=== PATIENT | female | born 2005 | race Caucasian/White ===

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

== ENCOUNTER 2024-01-28 10:10 | Outpatient (RCR) | payer MEDICAID, SELFPAY | END 2024-02-02 23:59 | disposition home or self-care (01) | LOC: SOT 10:10 | PROVIDERS: PCP Nurse Practitioner; Visit Provider Nurse Practitioner | DX: M25.541 Pain in joints of right hand (principal) | CPT/HCPCS: 97110; 97166 ==

== ENCOUNTER 2024-05-05 14:50 | Emergency (ER) | payer MEDICAID, SELFPAY ==
[2024-05-05] VITALS (9 sets, daily range): BP systolic 113–123; BP diastolic 64–85; PULSE 66–91; TEMP 36.7; O2SAT 98–100
[2024-05-05 17:00] LABS: Basophils % 0.4 %; Eosinophils # 0.2 10^3/uL (0.0-0.8); Eosinophils % 1.7 %; Hematocrit 41.9 % (36-47); Lymphocytes # 1.6 10^3/uL (1.5-6.5); Lymphocytes % 16.1 %; Mean Corpuscular Hemoglobin 26.7 pg (27-33); Mean Corpuscular Volume 83.5 fl (85-98); Mean Platelet Volume 9.3 fL (7.4-10.4); Monocytes # 0.7 10^3/uL (0.2-0.9); Monocytes % 7.3 %; Neutrophils # 7.43 10^3/uL (1.8-8.0); Neutrophils % 74.1 %; Nucleated Red Blood Cells % 0 %; Platelet Count 412 10^3/cmm (157-399); Red Blood Count 5.02 10^6/uL (3.85-5.65); Red Cell Distribution Width 13.9 % (12.1-15.1); White Blood Count 10.02 10^3/uL (4.5-13.0)
[2024-05-05 17:17] LABS: HCG Quantitative 7.04 mIU/mL
[2024-05-05 17:35] LABS: Slide Review Slide Review Perform
--- NOTE | 2024-05-05 18:32 | USR_ITS ---
PROCEDURE INFORMATION: Exam: US , Limited Exam date and time: 05/05/2024 6:45 PM Age: 18 years old Clinical indication: Lmp or gestational age (in weeks): Unknown; Antepartum complications; Bleeding; ; Patient HX: Patient stopped control pills September 2023. She has not had a menstrual cycle since then. Quant bhcg = 7.0. Patient denies any pain. ; Additional info: 9 weeks gestation low hcg, iufd versus ab LABS AND CLINICAL REPORTS: Choriogonadotropin in serum (Serum HCG): 7 mIU/mL Last menstrual period start date: Unknown TECHNIQUE: Imaging protocol: Real-time ultrasound of the maternal uterus with image documentation. Exam focused on the clinical indication. COMPARISON: No relevant prior studies available. FINDINGS: Gestation: No visualized intrauterine gestation. MATERNAL: Uterus: The uterus is anteverted and measures 8.2 cm x 4.7 cm x 3.9 cm. The endometrial thickness is 0.4 cm, which is unremarkable for patient age. Right ovary/adnexa: Right ovary measures 5.9 cm x 4.4 cm x 2.6 cm. Right ovarian volume is 35.9 mL. There is a 2.4 cm simple cyst within the right ovary. Left ovary/adnexa: Left ovary measures 3.3 cm x 3.4 cm x 1.7 cm. Left ovarian volume is 10 mL. Unremarkable sonographic appearance. US/US OB limited [id number] IMPRESSION: 1. No visualized intra or extra uterine gestation. If there is a history of positive test, this may be due to missed or early gestational age. Serial beta hCG and close sonographic follow-up is recommended. 2. Simple 2.4 cm right ovarian cyst. 3. Otherwise unremarkable pelvic ultrasound.
--- NOTE | 2024-05-05 18:34 | W.ED.PREGNAN ---
HPI - General: Chief complaint: Vaginal Bleeding Stated complaint: spotting 4 to 6wk preg Time Seen by Provider: 05/05/24 17:45 History of Present Illness: Patient was in the ER complaining of vaginal bleeding x 24 hours. She says she is 9 weeks per last period. [facility] to the [facility] approximately 2 weeks ago noted test and got set up with [facility]. Patient denies any pain at this time. Patient is G1, P0 Related Data Previous Rx's Medication Instructions Recorded naproxen 250 mg tablet 250 mg PO BID PRN pain #30 tabs 04/04/23 cetirizine 10 mg tablet 10 mg PO DAILY #30 tabs 10/01/23 fluticasone propionate 50 1 spray intranasal BID #15.8 mL 10/01/23 mcg/actuation nasal spray,suspension medroxyprogesterone 150 mg/mL 150 mg IM ONCE #1 mL 10/27/23 intramuscular suspension (Depo-Provera) cholecalciferol (vitamin D3) 1,250 1,250 mcg PO .weekly 6 weeks #6 11/02/23 mcg (50,000 unit) capsule caps docusate sodium 100 mg capsule 100 mg PO BID #60 caps 01/21/24 triamcinolone acetonide 0.5 % 1 applic topical BID 7 days #15 01/21/24 topical cream grams hydroxyzine HCl 10 mg tablet 5 mg (1/2 x 10 mg) PO TID PRN 01/24/24 anxiety #30 tabs paroxetine HCl 30 mg tablet 30 mg PO DAILY #30 tabs 01/24/24 Allergies Allergy/AdvReac Type Severity Reaction Status Date / Time No Known Allergies Allergy Verified 05/05/24 15:59 Review of Systems General: Reports: 10 or more systems reviewed and unremarkable except in HPI and below PFSH ED PFSH: Family History Other Asthma CAD (coronary artery disease) Cancer Diabetes Hypertension Migraines Stroke Social History Smoking and tobacco/nicotine status: never used tobacco/nicotine Second hand smoke exposure: Yes Alcohol intake: never Substance/Drug Use: never Adopted: No Highest education level completed: 8th Grade Female Reproductive History: Para: 0 Spontaneous abortions: No Physical Exam Const: COMMON NORMALS: no acute distress, average body habitus, patient oriented x3, no limitations, healthy appearing, alert and well nourished HENMT: COMMON NORMALS: normocephalic, atraumatic, hearing grossly normal bilaterally, external ears normal, Normal external nose present and moist oral mucous membranes HEAD & SCALP: normocephalic and atraumatic NOSE: Normal external nose present EXTERNAL EAR: Yes external ears normal Neck/C-Spine: COMMON NORMALS: no JVD Chest: COMMONS NORMALS: normal inspection of the chest and normal palpation of entire chest wall Resp: COMMON NORMALS: normal respiratory effort, No retractions, No use of accessory muscles and clear to auscultation bilaterally AUSCULTATION: clear to auscultation bilaterally Cardio: COMMON NORMALS: no JVD, regular rate, regular rhythm, S1 normal heart sound present, S2 normal heart sound present, No gallops present (Cardio), No clicks present (Cardio), No murmurs present (Cardio) and No rub (Cardio) RATE: regular rate RHYTHM: regular rhythm HEART SOUNDS: S1 normal heart sound present and S2 normal heart sound present GI: COMMON NORMALS: Normal to inspection, nondistended, normoactive bowel sounds present, Soft to palpation, non-tender, No hepatosplenomegaly present and no masses PALPATION: Yes Soft to palpation and Yes No hepatosplenomegaly present Neuro: COMMON NORMALS: patient oriented x3 SENSORIUM/ORIENTATION: Yes alert Course Vital Signs: Vital signs: Vital Signs Temperature 98.1 F 05/05/24 15:53 Pulse Rate 85 05/05/24 21:00 Blood Pressure 117/77 05/05/24 21:00 Pulse Oximetry 100 05/05/24 21:00 Oxygen Delivery Me thod Room Air 05/05/24 20:00 MDM - OB/Uterine Contractions Medical Decision Making Lab work showed a beta-hCG of 7, OB ultrasound showed no visible intra or extrauterine , these results was discussed with the patient and how she needs a follow-up in 48 hours for repeat beta-hCG quantitative. Patient be discharged. Medical Records I reviewed the patient's medical records. Lab Data I reviewed the patient's lab results. 05/05/24 16:50 Radiology Impressions Obstetrics Ultrasound 05/05/24 18:32 IMPRESSION: 1. No visualized intra or extra uterine gestation. If there is a history of positive test, this may be due to missed or early gestational age. Serial beta hCG and close sonographic follow-up is recommended. 2. Simple 2.4 cm right ovarian cyst. 3. Otherwise unremarkable pelvic ultrasound. Laboratory Results WBC 10.02 10^3/uL (4.5-13.0) 05/05/24 16:50 RBC 5.02 10^6/uL (3.85-5.65) 05/05/24 16:50 Hgb 13.40 g/dL (12.4-14.8) 05/05/24 16:50 Hct 41.9 % (36-47) 05/05/24 16:50 MCV 83.5 fl (85-98) L 05/05/24 16:50 MCH 26.7 pg (27-33) L 05/05/24 16:50 MCHC 32.0 g/dL (30-55) 05/05/24 16:50 RDW 13.9 % (12.1-15.1) 05/05/24 16:50 Plt Count 412 10^3/cmm (157-399) H 05/05/24 16:50 MPV 9.3 fL (7.4-10.4) 05/05/24 16:50 Neut % (Auto) 74.1 % 05/05/24 16:50 Lymph % (Auto) 16.1 % 05/05/24 16:50 Bailey % (Auto) 7.3 % 05/05/24 16:50 Eos % (Auto) 1.7 % 05/05/24 16:50 Baso % (Auto) 0.4 % 05/05/24 16:50 Neut # (Auto) 7.43 10^3/uL (1.8-8.0) 05/05/24 16:50 Lymph # (Auto) 1.6 10^3/uL (1.5-6.5) 05/05/24 16:50 Bailey # (Auto) 0.7 10^3/uL (0.2-0.9) 05/05/24 16:50 Eos # (Auto) 0.2 10^3/uL (0.0-0.8) 05/05/24 16:50 Baso # (Auto) 0.0 10^3/uL (0.0-0.1) 05/05/24 16:50 Nucleated RBC % (auto) 0 % 05/05/24 16:50 Nucleated RBCs # 0.0 /100WBC 05/05/24 16:50 Ser , Semi-Qnt 7.04 mIU/mL 05/05/24 16:50 Blood Type O Positive 05/05/24 16:50 Rho(D) Type Rh positive 05/05/24 16:50 Antibody Screen Negative 05/05/24 16:50 All radiology interpretation(s) finalized by discharge Discharge Plan Discharge Patient Disposition: Home Clinical Impression: Vaginal bleeding during Condition: Stable Prescriptions: No Action naproxen 250 mg tablet 250 mg PO BID PRN (Reason: pain) Qty: 30 0RF Rx Instructions: 1 tab by mouth every 12 hr as needed for pain; avoid Motrin, aspirin, ibuprofen, other NSAIDs cetirizine 10 mg tablet 10 mg PO DAILY Qty: 30 1RF Rx Instructions: 1 tab by mouth daily fluticasone propionate 50 mcg/actuation spray,suspension 1 spray intranasal BID Qty: 15.8 0RF Rx Instructions: administer into each nostril twice daily; use sterile nasal saline first docusate sodium 100 mg capsule 100 mg PO BID Qty: 60 0RF Rx Instructions: 1 cap by mouth twice daily triamcinolone acetonide 0.5 % cream 1 applic topical BID 7 Days Qty: 15 0RF Rx Instructions: Apply thin layer twice daily to clean, dry, affected skin of feet. paroxetine HCl 30 mg tablet 30 mg PO DAILY Qty: 30 1RF Rx Instructions: 1 tab by mouth daily hydroxyzine HCl 10 mg tablet 5 mg PO TID PRN (Reason: anxiety) Qty: 30 0RF Rx Instructions: Take 1/2-1 tablet every 6-8 hours as needed for breakthrough anxiety medroxyprogesterone [Depo-Provera] 150 mg/mL suspension 150 mg IM ONCE Qty: 1 0RF Rx Instructions: bring to clinic for injection; repeat in 11-12 weeks cholecalciferol (vitamin D3) 1,250 mcg (50,000 unit) capsule 1,250 mcg PO .weekly 42 Days Qty: 6 0RF Rx Instructions: 1 capsule by mouth once per week, take on the same day each week, x 6 weeks Discharge Orders: Discharge ED (Routine); Ordered 05/05/24 Ordered By: Phu Sevilla Referrals: Alba Garcia, BUBBA-SUSANNA [Primary Care Provider] - 1 week Patient Instructions: Threatened Miscarriage (ED) Activity Restrictions/Additional Instructions: Your quantitative beta-hCG came back at 7 which does not correlate to being either 4 or 8 weeks . Is more likely going down as you have more than likely had a spontaneous miscarriage. Your ultrasound not show a positive viable intrauterine . Please follow-up in 48 hours to have your quantitative beta-hCG repeated Thank you for choosing [facility] for your healthcare needs today. Please realize that you were seen in the emergency department and that we are providing you with an emergency medical screening exam and this may not be a complete and all exclusive of all testing and/or medical workup we may need to determine your element or severity of your illness. It is very important that you follow-up as instructed with your primary care provider or specialist for the additional evaluation and to discuss your medical treatment plan. You may return to the emergency department should you have concerns or if your condition changes or worsens in any way. Coding Level of Care Code ED Drawer Liner for Ana Paula Thomason
== END 2024-05-05 22:02 | disposition home or self-care (01) ==
PROVIDERS: Emergency Medicine; Emergency Provider Emergency Medicine; PCP Nurse Practitioner
DX: O20.9 Hemorrhage in early pregnancy, unspecified (principal)
CPT/HCPCS: 36415; 76815; 84702; 85025; 86850; 86900; 99284

== ENCOUNTER 2024-07-24 12:58 | Emergency (ER) | payer MEDICAID, SELFPAY ==
--- NOTE | 2024-07-24 12:59 | USR_ITS ---
PROCEDURE INFORMATION: Exam: US First Trimester, Transabdominal and US , Transvaginal Exam date and time: 07/24/2024 2:39 PM Age: 18 years old Clinical indication: Lmp or gestational age (in weeks): 7w; Antepartum complications; Bleeding; Additional info: Threatened miscarriage LABS AND CLINICAL REPORTS: Gestational age (Established): 7 w 0 d Estimated due date (Established): 03/12/2025 TECHNIQUE: Imaging protocol: Real-time transabdominal obstetrical ultrasound of the maternal pelvis and a first trimester , less than 14 weeks 0 days, with image documentation. Transvaginal imaging was used for better evaluation of the fetus, adnexa, and/or cervix. COMPARISON: US OB limited [id number] 05/05/2024 6:45 PM FINDINGS: GESTATION: Gestation: Intrauterine can be identified at this time. Embryo/ cardiac activity (BPM): Not evaluated at this time. Extra-embryonic membranes/Placenta: Not evaluated at this time. Amniotic/Chorionic fluid: Not evaluated at this time. BIOMETRY: Gestational age (AUA): Supposedly estimated age based on last menstrual period is 7 weeks MATERNAL: Uterus: Unremarkable. Cervix: Cervical length measures 3.3 cm. Right ovary/adnexa: Preserved flow to the right ovary. Left ovary/adnexa: Preserved flow to the right ovary. Intraperitoneal space: There appears to be trace fluid in the cervix and pelvic cul-de-sac. US/US OB <=14 wk fetus w transvag IMPRESSION: No definitive visualization of an intra or extra uterine gestation. In the history of a positive beta-hCG this may be due to missed or early gestational age. Serial beta HCGs and close sonographic follow-up is recommended.
[2024-07-24 13:32] LABS: Basophils % 0.4 %; Eosinophils # 0.2 10^3/uL (0.0-0.8); Eosinophils % 1.7 %; Hematocrit 42.1 % (36-47); Lymphocytes # 1.3 10^3/uL (1.5-6.5); Lymphocytes % 13.3 %; Mean Corpuscular HGB Conc 32.1 g/dL (30-55); Mean Corpuscular Hemoglobin 27.1 pg (27-33); Mean Corpuscular Volume 84.4 fl (85-98); Mean Platelet Volume 8.9 fL (7.4-10.4); Monocytes # 0.7 10^3/uL (0.2-0.9); Monocytes % 6.9 %; Neutrophils # 7.69 10^3/uL (1.8-8.0); Neutrophils % 77.4 %; Nucleated Red Blood Cells % 0 %; Platelet Count 394 10^3/cmm (157-399); Red Blood Count 4.99 10^6/uL (3.85-5.65); White Blood Count 9.94 10^3/uL (4.5-13.0)
[2024-07-24 13:35] VITALS: BP 124/75; PULSE 61; RESP 18; TEMP 36.6; O2SAT 98; BMI 23.8
[2024-07-24 13:50] LABS: HCG Quantitative 24.42 mIU/mL
--- NOTE | 2024-07-24 14:13 | ED_ITS ---
HPI - 2 General: Chief complaint: Vaginal Bleeding Stated complaint: 7 wks , bleeding Time Seen by Provider: 07/24/24 14:04 Source: patient Mode of arrival: ambulatory Limitations: no limitations History of Present Illness: 18-year-old female states she believes s he is 6 to 7 weeks states that today she been having some mild lower abdominal cramping along with spotting. She denies any heavy vaginal bleeding denies passing any clots denies any severe pain she had 1 previous miscarriage denies any worse improved factors Associated symptoms: Reports abdominal pain; Deny headache(s), nausea or vomiting Related Data Home Medications ?Medication ?Instructions ?Recorded ?Confirmed No Known Home Medications 07/24/2407/04 Allergies Allergy/AdvReac Type Severity Reaction Status Date / Time No Known Allergies Allergy Verified 05/05/24 15:59 Review of Systems 2 Const: Denies: fever(s), chills, body aches or change in appetite ENMT: Denies: throat pain or dental pain Card: Denies: chest pain Resp: Denies: dyspnea GI: Reports: abdominal pain; Denies: nausea, vomiting or diarrhea : Reports: vaginal bleeding Musc: Denies: neck pain or back pain Skin/Breast: Denies: rash Neuro: Denies: headache(s) PFSH ED 2 PFSH: Family History Other Asthma CAD (coronary artery disease) Cancer Diabetes Hypertension Migraines Stroke Social History Smoking and tobacco/nicotine status: never used tobacco/nicotine Second hand smoke exposure: Yes Alcohol intake: never Substance/Drug Use: never Adopted: No Highest education level completed: 8th Grade Female Reproductive History: Para: 0 Spontaneous abortions: No Physical Exam 2 Const: COMMON NORMALS: no acute distress, patient oriented x3 and healthy appearing HENMT: COMMON NORMALS: normocephalic and atraumatic HEAD & SCALP: n ormocephalic and atraumatic Eye: COMMON NORMALS: conjunctivae normal CONJUNCTIVA: Yes conjunctivae normal Neck/C-Spine: COMMON NORMALS: full ROM and supple Chest: COMMONS NORMALS: normal inspection of the chest Resp: COMMON NORMALS: normal respiratory effort Cardio: COMMON NORMALS: regular rate, regular rhythm and No murmurs present (Cardio) RATE: regular rate RHYTHM: regular rhythm GI: COMMON NORMALS: Normal to inspection, nondistended, normoactive bowel sounds present, Soft to palpation, non-tender and no masses PALPATION: Yes Soft to palpation Extremity: COMMON NORMALS: normal to inspection and full ROM Neuro: COMMON NORMALS: patient oriented x3, moves all extremities and no focal motor deficits Psych: COMMON NORMALS: mental status grossly normal, Normal thought process present and cooperative THOUGHT PROCESS: Normal thought process present Skin: COMMON NORMALS: no rashes or lesions noted and no wounds GENERAL SKIN EXAM: no rashes or lesions noted Course 2 Vital Signs: Vital signs: Vital Signs Temperature 97.8 F 07/24/24 13:35 Pulse Rate 61 07/24/24 13:35 Respiratory Rate 18 07/24/24 13:35 Blood Pressure 124/75 07/24/24 13:35 Pulse Oximetry 98 07/24/24 13:35 Oxygen Delivery Me thod Room Air 07/24/24 13:35 MDM - OB/Uterine Contractions Medical Decision Making Patient presents here with threatened miscarriage her quantitative level is very low she is likely either very early or is miscarried. Ultrasound showed no acute findings no signs of ectopic informed her she needs to follow-up with her PCP this week to have her quantitative level redrawn to trend it she is return if worsening she understands agrees to plan Medical Records I reviewed the patient's medical records. Lab Data I reviewed the patient's lab results. 07/24/24 13:23 Laboratory Results WBC 9.94 10^3/uL (4.5-13.0) 07/24/24 13:23 RBC 4.99 10^6/uL (3.85-5.65) 07/24/24 13:23 Hgb 13.50 g/dL (12.4-14.8) 07/24/24 13:23 Hct 42.1 % (36-47) 07/24/24 13:23 MCV 84.4 fl (85-98) L 07/24/24 13:23 MCH 27.1 pg (27-33) 07/24/24 13:23 MCHC 32.1 g/dL (30-55) 07/24/24 13:23 RDW 15.0 % (12.1-15.1) 07/24/24 13:23 Plt Count 394 10^3/cmm (157-399) 07/24/24 13:23 MPV 8.9 fL (7.4-10.4) 07/24/24 13:23 Neut % (Auto) 77.4 % 07/24/24 13:23 Lymph % (Auto) 13.3 % 07/24/24 13:23 Callahan % (Auto) 6.9 % 07/24/24 13:23 Eos % (Auto) 1.7 % 07/24/24 13:23 Baso % (Auto) 0.4 % 07/24/24 13:23 Neut # (Auto) 7.69 10^3/uL (1.8-8.0) 07/24/24 13:23 Lymph # (Auto) 1.3 10^3/uL (1.5-6.5) L 07/24/24 13:23 Callahan # (Auto) 0.7 10^3/uL (0.2-0.9) 07/24/24 13:23 Eos # (Auto) 0.2 10^3/uL (0.0-0.8) 07/24/24 13:23 Baso # (Auto) 0.0 10^3/uL (0.0-0.1) 07/24/24 13:23 Nucleated RBC % (auto) 0 % 07/24/24 13:23 Nucleated RBCs # 0.0 /100WBC 07/24/24 13:23 Ser , Semi-Qnt 24.42 mIU/mL 07/24/24 13:23 All radiology interpretation(s) finalized by discharge Discharge Plan Discharge Patient Disposition: Home Clinical Impression: Threatened miscarriage Condition: Stable Prescriptions: No Action No Known Home Medications Discharge Orders: Discharge ED (Routine); Ordered 07/24/24 Ordered By: Karina Huff Referrals: Alba Garcia FNP-SUSANNA [Primary Care Provider] - 4-7 days Discharge Diet: Advance as tolerated Discharge Activity: Resume usual activity Patient Instructions: Threatened Miscarriage (ED) Print Language: Bulgarian Coding Level of Care Code ED Traveling Nurse for Ana Paula Thomason
[2024-07-24 15:10] VITALS: O2SAT 100
[2024-07-24 15:17] VITALS: BP 120/75; PULSE 88; RESP 18; O2SAT 97
== END 2024-07-24 15:19 | disposition home or self-care (01) ==
PROVIDERS: Emergency Provider Emergency Medicine; PCP Nurse Practitioner
DX: O20.0 Threatened abortion (principal); Z3A.01 Less than 8 weeks gestation of pregnancy
CPT/HCPCS: 36415; 76801; 76817; 84702; 85025; 99284

== ENCOUNTER 2024-08-25 14:36 | Outpatient (CLI) | payer MEDICAID, SELFPAY ==
--- NOTE | 2024-08-25 14:45 | US_ITS ---
WS: [id number] US pelvic limited [id number] HISTORY: N93.9 - Abnormal uterine and vaginal bleeding, unspecified COMPARISON: None available. Uterus: 8.3 cm x 2.6 cm x 3.1 cm. Normal size anteverted uterus. No fibroid or mass. Endometrium: 0.9 cm. Unremarkable by transabdominal imaging. Right ovary: 2.5 cm x 1.5 cm x 1.5 cm. Normal size and vascularity, no cystic or solid masses. Left ovary: 2.4 cm x 1.8 cm x 2.5 cm. Normal size and vascularity, no cystic or solid masses. No free fluid in the cul-de-sac. US/US pelvic limited [id number] IMPRESSION: Unremarkable transabdominal pelvic ultrasound. Patient is declined transvaginal imaging at this time.
[2024-08-25 15:01] LABS: Basophils % 0.3 %; Eosinophils # 0.3 10^3/uL (0.0-0.8); Eosinophils % 3.6 %; Hematocrit 41.4 % (36-47); Lymphocytes # 2.1 10^3/uL (1.5-6.5); Lymphocytes % 22.5 %; Mean Corpuscular HGB Conc 31.9 g/dL (30-55); Mean Corpuscular Hemoglobin 26.8 pg (27-33); Mean Corpuscular Volume 84.1 fl (85-98); Mean Platelet Volume 8.9 fL (7.4-10.4); Monocytes # 0.8 10^3/uL (0.2-0.9); Neutrophils # 5.86 10^3/uL (1.8-8.0); Neutrophils % 64.2 %; Nucleated Red Blood Cells % 0 %; Platelet Count 360 10^3/cmm (157-399); Red Blood Count 4.92 10^6/uL (3.85-5.65); White Blood Count 9.14 10^3/uL (4.5-13.0)
[2024-08-25 15:04] LABS: HCG Qualitative Urine. Negative (Negative)
[2024-08-25 15:38] LABS: 25 Hydroxy Vitamin D 23 ng/mL (30-100); Estradiol 105.9 pg/mL; Follicle Stimulating Hormone 1.8 mIU/mL; HCG Quantitative < 1.00 mIU/mL; Luteinizing Hormone 2.9 mIU/mL (0.5-41.7); Prolactin 19.09 ng/mL (4.8-23.3); Thyroid Stimulating Hormone 1.53 uIU/mL (0.27-4.20)
[2024-08-25 16:02] LABS: Free T4 Free Thyroxine 1.08 ng/dL (0.93-1.60)
== END 2024-08-25 14:37 | disposition home or self-care (01) ==
PROVIDERS: PCP Nurse Practitioner; Visit Provider Pediatrics Adolescent Medicine
DX: N93.9 Abnormal uterine and vaginal bleeding, unspecified (principal); Z30.09 Encounter for other general counseling and advice on contraception; E55.9 Vitamin D deficiency, unspecified
CPT/HCPCS: 36415; 76857; 81025; 82306; 82670; 83001; 83002; 84146; 84439; 84443; 84702; 85025

== ENCOUNTER → 2024-09-15 14:09 | Outpatient (BNVA) | payer MEDICAID, SELFPAY | PROVIDERS: PCP Nurse Practitioner; Visit Provider Nurse Practitioner Women's Health | DX: N92.6 Irregular menstruation, unspecified (principal) | CPT/HCPCS: 81025; 84702 ==

== ENCOUNTER → 2024-09-16 15:01 | Outpatient (BNVA) | payer MEDICAID, SELFPAY | PROVIDERS: PCP Nurse Practitioner; Visit Provider Nurse Practitioner Women's Health | DX: Z36.9 Encounter for antenatal screening, unspecified (principal) | CPT/HCPCS: 76817 ==

== ENCOUNTER → 2024-10-14 10:57 | Outpatient (BNVA) | payer MEDICAID, SELFPAY | PROVIDERS: PCP Nurse Practitioner; Visit Provider Nurse Practitioner Women's Health | DX: Z34.90 Encounter for supervision of normal pregnancy, unspecified, unspecified trimester (principal); Z34.80 Encounter for supervision of other normal pregnancy, unspecified trimester | CPT/HCPCS: 80307; 84315; 85025; 86592; 86762; 86787; 86803; 86850; 86900; 87086; 87340; 87806 ==

== ENCOUNTER → 2024-10-29 10:26 | Outpatient (BNVA) | payer MEDICAID, SELFPAY | PROVIDERS: PCP Nurse Practitioner; Visit Provider Nurse Practitioner Women's Health | DX: Z34.80 Encounter for supervision of other normal pregnancy, unspecified trimester (principal); Z34.90 Encounter for supervision of normal pregnancy, unspecified, unspecified trimester | CPT/HCPCS: 84315; 87491; 87591; 87661 ==

== ENCOUNTER → 2024-11-19 14:00 | Outpatient (BNVA) | payer MEDICAID, SELFPAY | PROVIDERS: PCP Nurse Practitioner; Visit Provider Nurse Practitioner Women's Health | DX: Z34.80 Encounter for supervision of other normal pregnancy, unspecified trimester (principal) | CPT/HCPCS: 84315 ==

== ENCOUNTER → 2024-12-03 15:32 | Outpatient (BNVA) | payer MEDICAID, SELFPAY | PROVIDERS: PCP Nurse Practitioner; Visit Provider Nurse Practitioner Women's Health | DX: Z34.80 Encounter for supervision of other normal pregnancy, unspecified trimester (principal) | CPT/HCPCS: 82105 ==

== ENCOUNTER → 2024-12-23 09:42 | Outpatient (BNVA) | payer MEDICAID, SELFPAY | PROVIDERS: PCP Nurse Practitioner; Visit Provider Nurse Practitioner Women's Health | DX: Z36.89 Encounter for other specified antenatal screening (principal) | CPT/HCPCS: 76805 ==

== ENCOUNTER → 2025-01-20 12:20 | Outpatient (BNVA) | payer MEDICAID, SELFPAY | PROVIDERS: PCP Nurse Practitioner; Visit Provider Obstetrics & Gynecology | DX: Z34.80 Encounter for supervision of other normal pregnancy, unspecified trimester (principal); Z3A.24 24 weeks gestation of pregnancy | CPT/HCPCS: 84315 ==

== ENCOUNTER → 2025-02-10 15:22 | Outpatient (BNVA) | payer MEDICAID, SELFPAY | PROVIDERS: PCP Nurse Practitioner; Visit Provider Obstetrics & Gynecology | DX: O99.320 Drug use complicating pregnancy, unspecified trimester (principal); F12.90 Cannabis use, unspecified, uncomplicated | CPT/HCPCS: 82950; 84315; 85025 ==

== ENCOUNTER → 2025-03-03 14:45 | Outpatient (BNVA) | payer MEDICAID, SELFPAY | PROVIDERS: PCP Nurse Practitioner; Visit Provider Obstetrics & Gynecology | DX: Z34.83 Encounter for supervision of other normal pregnancy, third trimester (principal) | CPT/HCPCS: 81000 ==

== ENCOUNTER → 2025-03-17 13:26 | Outpatient (BNVA) | payer MEDICAID, SELFPAY | PROVIDERS: PCP Nurse Practitioner; Visit Provider Obstetrics & Gynecology | DX: Z34.80 Encounter for supervision of other normal pregnancy, unspecified trimester (principal) | CPT/HCPCS: 84315 ==

== ENCOUNTER 2025-04-07 11:51 | Outpatient (CLI) | payer MEDICAID, SELFPAY ==
[2025-04-07 11:59] VITALS: BMI 25.4
[2025-04-07 12:09] VITALS: BP 116/58; PULSE 110
[2025-04-07 12:29] VITALS: BP 124/74; PULSE 101
[2025-04-07 12:35] LABS: Glucose Urine UA Negative (Normal); Nitrate Urine Negative (Negative); Specific Gravity, Urine 1.004 (1.005-1.030)
[2025-04-07 12:49] VITALS: BP 129/61; PULSE 85
[2025-04-07 12:57] LABS: UA Slide Review UA Slide Review Perf
[2025-04-07 13:09] VITALS: BP 110/58; PULSE 93
== END 2025-04-07 13:14 | disposition home or self-care (01) ==
LOC: OPOB 11:52 → OBGYN 11:52
PROVIDERS: PCP Nurse Practitioner; Visit Provider Obstetrics & Gynecology
DX: O26.899 Other specified pregnancy related conditions, unspecified trimester (principal); Z3A.00 Weeks of gestation of pregnancy not specified; N89.8 Other specified noninflammatory disorders of vagina
CPT/HCPCS: 59025; 81001; 83986; 87086; 99211

== ENCOUNTER → 2025-04-14 14:36 | Outpatient (BNVA) | payer MEDICAID, SELFPAY | PROVIDERS: PCP Nurse Practitioner; Visit Provider Obstetrics & Gynecology | DX: Z34.93 Encounter for supervision of normal pregnancy, unspecified, third trimester (principal); Z3A.36 36 weeks gestation of pregnancy | CPT/HCPCS: 84315; 87081 ==

== ENCOUNTER → 2025-04-21 09:41 | Outpatient (BNVA) | payer MEDICAID, SELFPAY | PROVIDERS: PCP Nurse Practitioner; Visit Provider Obstetrics & Gynecology | DX: O22.43 Hemorrhoids in pregnancy, third trimester (principal) | CPT/HCPCS: 84315 ==

== ENCOUNTER → 2025-04-27 11:45 | Outpatient (BNVA) | payer MEDICAID, SELFPAY | PROVIDERS: PCP Nurse Practitioner; Visit Provider Obstetrics & Gynecology | DX: Z34.93 Encounter for supervision of normal pregnancy, unspecified, third trimester (principal); Z3A.38 38 weeks gestation of pregnancy | CPT/HCPCS: 84315 ==

== ENCOUNTER → 2025-05-04 15:33 | Outpatient (BNVA) | payer MEDICAID, SELFPAY | PROVIDERS: PCP Nurse Practitioner; Visit Provider Obstetrics & Gynecology | DX: Z34.93 Encounter for supervision of normal pregnancy, unspecified, third trimester (principal); Z3A.38 38 weeks gestation of pregnancy | CPT/HCPCS: 84315 ==